=== PATIENT | female | born 1955 | race Caucasian/White ===

== ENCOUNTER 2016-11-24 05:45 | Day surgery (SDC) | payer BC ==
[~2016-11-24] VITALS: Ht 157.5 cm; Wt 79.3 kg
[~2016-11-24 05:45] MED LIST: DAILY VITE1 EAC1 PO; KLONOPIN0.5 M1 PO; LOTENSIN10 MG PO
[2016-11-24 06:22] VITALS: BP 159/94
[2016-11-24 16:04] VITALS: BP 139/92
[2016-11-24 17:00] VITALS: BP 128/82
== END 2016-11-24 17:10 | disposition home or self-care (01) ==
LOC: SDC 05:45 → NUC 07:00 → SDC 07:00
DX: C50.912 Malignant neoplasm of unspecified site of left female breast (principal); I10 Essential (primary) hypertension; E78.5 Hyperlipidemia, unspecified; E55.9 Vitamin D deficiency, unspecified; F43.22 Adjustment disorder with anxiety
CPT/HCPCS: 78195; 78999; 88305; 88307; A9541; J0690; J1170; J2250; J3010; S0020

== ENCOUNTER 2017-02-21 16:08 | Inpatient (IN) | payer BC ==
[~2017-02-21] VITALS: Ht 157.5 cm; Wt 74.6 kg
[2017-02-21 16:57] LABS: HEMATOCRIT 47.9 % (36.0-46.0); MCH 31.3 PG (29.0-34.0); MCV 93.2 FL (83-99); RED BLOOD COUNT 5.14 M/uL (3.80-5.20); WHITE BLOOD COUNT 6.6 K/uL (4.1-10.2)
[2017-02-21 16:58] LABS: MCHC 33.6 G/DL (30.0-36.0); MEAN PLAT.VOLUME 9.3 uM^3 (9.5-12.4); PLATELET COUNT 218 K/uL (156-360); RBC DIS.WIDTH-CV 13.2 % (11.8-14.6); RBC DIS.WIDTH-SD 45.1 % (39-53)
[2017-02-21 17:07] LABS: INTER. NORMALIZED RATIO 1.1; PROTHROMBIN TIME 10.9 (9.2-11.2)
[2017-02-21 17:09] LABS: CHLORIDE 102 mEq/L (99-109); POTASSIUM 3.6 mEq/L (3.7-5.4); SODIUM 138 mEq/L (136-147)
[2017-02-21 17:11] LABS: GLUCOSE 136 mg/dL (70-99)
[2017-02-21 17:12] LABS: ANION GAP 10 MEQ/L (2-14)
[2017-02-21 17:14] LABS: GFR ESTIMATE (CALCULATED) 49 mL/min/
[2017-02-21 17:15] LABS: UREA NITROGEN (BUN) 18 mg/dL (9-23)
[2017-02-21] MEDS ORDERED: CENTRUM SILVER1 EAC4 PO (19:38)
[2017-02-21] MEDS ORDERED: VITAMIN D31000 UNIT PO (19:38)
[2017-02-21] MEDS ORDERED: PROBIOTIC1 EAC1 PO (19:39)
[2017-02-21 20:19] LABS: Estimated Average Glucose 123 mg/dL (70-123); HDL CHOLESTEROL 55 MG/DL (Desirable>=50); HEMOGLOBIN A1c (GLYCOHEMOGLOB) 5.9 % HGB (Below 5.7); LDL CHOLESTEROL 234 mg/dL (Desirable<100); NON-HDL CHOLESTEROL 266 mg/dL (Desirable<160); TOTAL CHOLESTEROL 321 mg/dL (Desirable<200); TRIGLYCERIDES 158 MG/DL (Normal: <150)
[2017-02-21 21:38] VITALS: BP 149/92
[2017-02-21 23:30] VITALS: BP 164/93
[2017-02-22 04:07] VITALS: BP 155/81
[2017-02-22 11:40] VITALS: BP 138/94
[2017-02-22 17:02] VITALS: BP 136/92
[2017-02-22 19:36] VITALS: BP 145/79
[2017-02-22 23:46] VITALS: BP 98/65
[2017-02-23 03:37] VITALS: BP 119/71
[2017-02-23] MEDS ORDERED: PRAVACHOL20 MG PO (11:07)
[2017-02-23] MEDS ORDERED: CLOPIDOGREL75 MG PO (11:07)
== END 2017-02-23 13:25 | disposition home or self-care (01) | DRG 66 ==
LOC: EME 16:08 → EDOF 19:19 → 5SOUTH 21:04
PROVIDERS: Emergency Medicine; Nurse Practitioner Family
DX: I63.9 Cerebral infarction, unspecified (principal); I10 Essential (primary) hypertension; F41.9 Anxiety disorder, unspecified; E78.2 Mixed hyperlipidemia; R73.03 Prediabetes; C50.812 Malignant neoplasm of overlapping sites of left female breast; H53.9 Unspecified visual disturbance; R29.810 Facial weakness
CPT/HCPCS: 70450; 70551; 71010; 80048; 80061; 83036; 85027; 85610; 93880; 99281; 99285; G0378; J1200; J1650; J1885; J2060; J2765